=== PATIENT | male | born 1950 | race Caucasian/White ===

== ENCOUNTER 2019-01-25 13:20 | Emergency (ER) | payer OTHER ==
[~2019-01-25] VITALS: Ht 170.2 cm; Wt 99.8 kg
[2019-01-25] MEDS ORDERED: NORVASC2.5 MG (13:47)
== END 2019-01-25 17:09 | disposition home or self-care (01) ==
LOC: ER 13:20
DX: S61.220A Laceration with foreign body of right index finger without damage to nail, initial encounter (principal); S61.222A Laceration with foreign body of right middle finger without damage to nail, initial encounter; S61.224A Laceration with foreign body of right ring finger without damage to nail, initial encounter; W26.8XXA Contact with other sharp object(s), not elsewhere classified, initial encounter; Y93.89 Activity, other specified; Y92.89 Other specified places as the place of occurrence of the external cause; Y99.8 Other external cause status

== ENCOUNTER 2019-02-01 09:02 | Emergency (ER) | payer OTHER ==
[~2019-02-01] VITALS: Ht 167.6 cm; Wt 86.2 kg
[~2019-02-01 09:02] MED LIST: NORVASC2.5 MG
== END 2019-02-01 10:41 | disposition home or self-care (01) ==
LOC: ER 09:02
DX: Z48.02 Encounter for removal of sutures (principal)